=== PATIENT | male | born 2000 | race American Indian/Alaskan Native ===

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

== ENCOUNTER 2021-08-23 22:39 | Emergency (ER) | payer SELFPAY ==
[2021-08-23 22:44] VITALS: BP 123/70
== END 2021-08-24 07:00 | disposition left against medical advice (07) ==
LOC: ED 22:39
DX: S93.409A Sprain of unspecified ligament of unspecified ankle, initial encounter (principal); Z53.21 Procedure and treatment not carried out due to patient leaving prior to being seen by health care provider; X58.XXXA Exposure to other specified factors, initial encounter; Y93.89 Activity, other specified; Y92.89 Other specified places as the place of occurrence of the external cause; Y99.8 Other external cause status